=== PATIENT | female | born 1990 ===

== ENCOUNTER 2017-12-25 19:18 | Inpatient (IN) | payer OTHER ==
[2017-12-25] MEDS: DEXTROSE 5%-0.9% NACL 1,000 ML IV (21:30)
[2017-12-25] MEDS ORDERED: ACETAMINOPHEN 325 MG TAB PO (21:30)
[2017-12-25] MEDS ORDERED: DEXTROSE 50% 50 ML SYRINGE IV ×2 (22:00)
[2017-12-25] MEDS ORDERED: GLUCOSE GEL 15 GRAM TUBE PO ×2 (22:00)
[2017-12-25] MEDS ORDERED: GLUCAGON 1 MG INJ IM (22:00)
[2017-12-25] MEDS ORDERED: GLUCOSE GEL 15 GRAM TUBE BUCCAL (22:00)
[2017-12-25] MEDS: SERTRALINE 50 MG TAB PO (23:29)
[2017-12-25] MEDS: INSULIN ASPART [NOVOLOG] 3 ML PEN SC (23:30)
[2017-12-26] MEDS ORDERED: INSULIN ASPART [NOVOLOG] 3 ML PEN SC ×4 (01:00→07:55)
[2017-12-26] MEDS: ACCU-CHEK XX ×4 (02:00→21:43)
[2017-12-26] MEDS: INSULIN ASPART [NOVOLOG] 3 ML PEN SC ×6 (04:03→21:00)
[2017-12-26] MEDS: PANTOPRAZOLE 40 MG INJ IV (06:01)
[2017-12-26] MEDS: LEVOTHYROXINE 50 MCG TAB PO (06:04)
[2017-12-26 06:41] LABS: ADD MAN DIFF? NO
[2017-12-26 06:45] LABS: ABNORMAL IP MESSAGE 1; BASOPHILS % 0.6 % (0.0-2.0); EOSINOPHILS % 0.7 % (0.0-7.0); HEMATOCRIT 33.7 % (37.0-47.0); HEMOGLOBIN 10.6 g/dl (12.0-16.0); LYMPHOCYTES # 1.7 10^3/ul (0.8-2.9); LYMPHOCYTES % 31.7 % (15.0-51.0); MEAN CORPUSCULAR HEMOGLOBIN 25.2 pg (29.0-33.0); MEAN CORPUSCULAR HGB CONC 31.5 g/dl (32.0-37.0); MEAN CORPUSCULAR VOLUME 80.2 fl (82.0-101.0); MEAN PLATELET VOLUME 11.1 fl (7.4-10.4); MONOCYTE # 0.3 10^3/ul (0.3-0.9); MONOCYTES % 5.7 % (0.0-11.0); NEUTROPHIL # 3.3 10^3/ul (1.6-7.5); NEUTROPHILS % 61.1 % (39.0-77.0); PLATELET COUNT 196 10^3/UL (140-415)
[2017-12-26 06:45] LABS: WHITE BLOOD COUNT 5.4 10^3/ul (4.8-10.8)
[2017-12-26 06:48] LABS: POSITIVE DIFF @See below
[2017-12-26 08:09] LABS: ANION GAP 10 (5-13); BLOOD UREA NITROGEN 20 mg/dl (7-20); CALCIUM 8.7 mg/dl (8.4-10.2); CARBON DIOXIDE 21 mmol/L (21-31); CREATININE 0.63 mg/dl (0.44-1.00); Estimated GFR > 60 mL/min (>60); GLUCOSE 206 mg/dl (70-220); POTASSIUM 4.1 mmol/L (3.5-5.1); SODIUM 141 mmol/L (135-144)
[2017-12-26] MEDS: SERTRALINE 50 MG TAB PO (08:52)
[2017-12-26] MEDS: DEXTROSE 5%-0.9% NACL 1,000 ML IV (11:48)
[2017-12-26] MEDS ORDERED: INSULIN DETEMIR [LEVEMIR] (100 UNITS/ML) SYG SC (20:00)
[2017-12-26] MEDS: INSULIN GLARGINE [LANTus] (100 UNITS/ML) SYG SC (20:26)
[2017-12-27] MEDS: DEXTROSE 5%-0.9% NACL 1,000 ML IV ×2 (02:06→16:24)
[2017-12-27] MEDS: PANTOPRAZOLE 40 MG INJ IV (05:57)
[2017-12-27] MEDS: LEVOTHYROXINE 50 MCG TAB PO (05:57)
[2017-12-27 07:07] LABS: ADD MAN DIFF? NO
[2017-12-27 07:12] LABS: WHITE BLOOD COUNT 6.8 10^3/ul (4.8-10.8)
[2017-12-27 07:12] LABS: ABNORMAL IP MESSAGE 1; BASOPHILS % 0.4 % (0.0-2.0); EOSINOPHILS # 0.1 10^3/ul (0.0-0.5); HEMATOCRIT 37.4 % (37.0-47.0); HEMOGLOBIN 11.9 g/dl (12.0-16.0); LYMPHOCYTES # 2.1 10^3/ul (0.8-2.9); LYMPHOCYTES % 31.1 % (15.0-51.0); MEAN CORPUSCULAR HEMOGLOBIN 25.3 pg (29.0-33.0); MEAN CORPUSCULAR HGB CONC 31.8 g/dl (32.0-37.0); MEAN CORPUSCULAR VOLUME 79.4 fl (82.0-101.0); MEAN PLATELET VOLUME 11.8 fl (7.4-10.4); MONOCYTE # 0.4 10^3/ul (0.3-0.9); MONOCYTES % 5.6 % (0.0-11.0); NEUTROPHIL # 4.2 10^3/ul (1.6-7.5); NEUTROPHILS % 61.5 % (39.0-77.0); PLATELET COUNT 245 10^3/UL (140-415); RED BLOOD COUNT 4.71 10^6/ul (4.20-5.40); RED CELL DISTRIBUTION WIDTH 24.1 % (11.5-14.5)
[2017-12-27] MEDS: ACCU-CHEK XX ×6 (07:25→19:59)
[2017-12-27 07:27] LABS: POSITIVE DIFF @See below
[2017-12-27 07:35] LABS: ANION GAP 13 (5-13); BLOOD UREA NITROGEN 23 mg/dl (7-20); CALCIUM 9.1 mg/dl (8.4-10.2); CARBON DIOXIDE 22 mmol/L (21-31); CHLORIDE 101 mmol/L (97-110); Estimated GFR > 60 mL/min (>60); GLUCOSE 195 mg/dl (70-220); POTASSIUM 4.6 mmol/L (3.5-5.1); SODIUM 136 mmol/L (135-144)
[2017-12-27] MEDS: INSULIN ASPART [NOVOLOG] 3 ML PEN SC ×8 (07:53→21:01)
[2017-12-27] MEDS: SERTRALINE 50 MG TAB PO (09:04)
[2017-12-27 09:51] LABS: HEMOGLOBIN A1C 6.5 % (0-5.9)
[2017-12-27] MEDS: INSULIN DETEMIR [LEVEMIR] (100 UNITS/ML) SYG SC (15:34)
[2017-12-27] MEDS: INSULIN GLARGINE [LANTus] (100 UNITS/ML) SYG SC ×2 (21:02→21:54)
[2017-12-28] MEDS: ACCU-CHEK XX ×5 (02:00→13:40)
[2017-12-28] MEDS: DEXTROSE 5%-0.9% NACL 1,000 ML IV (05:37)
[2017-12-28] MEDS: LEVOTHYROXINE 50 MCG TAB PO (05:38)
[2017-12-28] MEDS: PANTOPRAZOLE 40 MG INJ IV (05:40)
[2017-12-28] MEDS: INSULIN ASPART [NOVOLOG] 3 ML PEN SC ×6 (07:50→18:04)
[2017-12-28] MEDS: SERTRALINE 50 MG TAB PO (10:00)
== END 2017-12-28 18:20 | disposition home or self-care (01) | DRG 638 ==
LOC: TEL 19:18 → MS1 12-27 22:37
PROVIDERS: Internal Medicine Nephrology
DX: E10.649 Type 1 diabetes mellitus with hypoglycemia without coma (principal); R65.10 Systemic inflammatory response syndrome (SIRS) of non-infectious origin without acute organ dysfunction; E05.00 Thyrotoxicosis with diffuse goiter without thyrotoxic crisis or storm; D64.9 Anemia, unspecified; F32.9 Major depressive disorder, single episode, unspecified
CPT/HCPCS: 80048; 82652; 82962; 83036; 84443; 85025